=== PATIENT | female | born 2000 | race Caucasian/White ===

== ENCOUNTER 2024-12-04 22:21 | Emergency (ER) | payer BC, SELFPAY ==
[2024-12-04 22:30] VITALS: BP 136/102; PULSE 136; RESP 24; TEMP 36.5; O2SAT 99
--- NOTE | 2024-12-04 22:32 | ECG_ITS ---
Test Date: 2024-12-04 22:37:15 Measurements Intervals [place] Rate: 142 P: 59 SD: 123 QRS: 64 QRSD: 75 T: 38 QT: 328 QTc: 505 Interpretive Statements SINUS TACHYCARDIA NONSPECIFIC ST & T-WAVE ABNORMALITY ABNORMAL ECG No previous ECG available for comparison Electronically Signed On 12-05-2024 08:08:47 CDT by Reed Gill M.D.
[2024-12-04 23:08] LABS: Strep Group A RT-PCR NOT DETECTED (Negative)
[2024-12-04 23:20] LABS: Influenza A QL RT-PCR Negative (Negative); Influenza B QL RT-PCR Negative (Negative); RSV RNA, RT-PCR Positive (Negative); SARS-CoV-2 RNA PCR Negative (Negative)
[2024-12-05] VITALS (11 sets, daily range): BP systolic 115–137; BP diastolic 76–90; PULSE 95–105; RESP 15–22; O2SAT 98
--- NOTE | 2024-12-05 06:39 | ED_ITS ---
HPI - URI/Sore Throat General Chief Complaint: Upper Respiratory Infection Stated Complaint: Vomiting, fever, sore throat x 3 days-Cough Time Seen by Provider: 12/05/24 05:49 History of Present Illness HPI Narrative: 24-year-old otherwise healthy female presenting with 3 days of fever, sore throat, vomiting and diarrhea. She endorses a nonproductive cough. No sick contacts. Thought it may be seasonal allergies. She has been trying to orally hydrate at home but states that she feels nauseous. Endorses diarrhea with loose stools. No sick contacts, no children at home without any similar symptoms, recently moved here from [place]. Was otherwise in her normal state of health. Related Data Allergies Allergy/AdvReac Type Severity Reaction Status Date / Time amoxicillin Allergy Intermediate Hives Verified 12/04/24 22:23 Review of Systems Review of Systems: As reviewed above in HPI Exam Narrative: GENERAL: Morbidly obese but not any acute distress, overall well-appearing HEAD: [Normocephalic, atraumatic.] EYES: [PERRLA and EOMI.] ENT: Nares clear, no rhinorrhea or epistaxis. Mucous membranes moist. NECK: Supple. CHEST: [Clear to auscultation. No respiratory distress.] HEART: [Regular rate and rhythm]. No murmur heard. [Normal peripheral pulses.] ABDOMEN: [Soft, nondistended], [nontender], [No rigidity or guarding] EXTREMITIES: Normal range of motion. [No edema.] SKIN: Warm, dry, no rash. NEURO: [No focal deficits]. Alert and oriented [x3.] PSYCH: [Normal mood and affect.] Course Vital Signs Vital signs: Vital Signs Temperature 36.5 C 12/04/24 22:30 Pulse Rate 136 H 12/04/24 22:30 Respiratory Rate 24 H 12/04/24 22:30 Blood Pressure 136/102 H 12/04/24 22:30 Pulse Oximetry 99 12/04/24 22:30 Oxygen Delivery Room Air 12/04/24 22:30 Temperature 36.5 C 12/04/24 22:30 Pulse Rate 98 12/05/24 05:49 Respiratory Rate 24 H 12/04/24 22:30 Blood Pressure 124/86 12/05/24 05:49 Pulse Oximetry 98 12/05/24 05:49 Oxygen Delivery Room Air 12/04/24 22:30 MDM - URI/Sore Throat MDM Narrative Medical decision making narrative: 24-year-old female presenting with signs and symptoms of a viral respiratory infection versus viral syndrome. She endorses fever, vomiting, diarrhea and sore throat for 3 days. She is overall well-appearing. Was coughing in triage with a elevated heart rate but clinically does not appear dry or dehydrated and her vital signs improved without any interventions. She is afebrile here, no tachycardia or blood pressure concerns. Viral panel swab and strep swabs were obtained. EKG ordered and shows sinus tachycardia, no ST segment changes or ectopy. Viral panel swabs came back for RSV. Negative for COVID, flu, strep. Patient was given symptomatic control including loperamide, Zofran and Bentyl and will be discharged home with combination of the above medications for treatments at home and given strict return precautions as well as instructions on good oral hydration. Patient will follow-up with primary care provider or return with any emergent concerns. Medical Records Attestation: I reviewed the patient's medical records. Lab Data Attestation: I reviewed the patient's lab results. Labs: Lab Results 12/04/24 Range/Units 22:34 Influenza A (RT-PCR) Negative (Negative) Influenza B (RT-PCR) Negative (Negative) RSV (RT-PCR) Positive A (Negative) SARS-CoV-2 RNA (RT-PCR) Negative (Negative) Group A Strep (PCR) Not detected (Negative) Discharge Plan Discharge Clinical Impression: Respiratory syncytial virus (RSV), Upper respiratory infection Patient Disposition: Home Condition: Stable Instructions: Antibiotic Form, RSV (Respiratory Syncytial Virus) Infection (ED) Additional Instructions: Take the prescribed medications for control of nausea vomiting and diarrhea. Maintain good oral hydration with electrolyte replacement solution such as Pedialyte, Gatorade, Powerade, liquid IV. Follow-up with a primary care provider. Return with any emergent concerns. Patient Language: Wolof Prescriptions: New loperamide [Anti-Diarrheal (loperamide)] 2 mg capsule 2 mg PO Q6H PRN (Reason: loose stool) Qty: 14 0RF benzonatate 200 mg capsule 200 mg PO TID PRN (Reason: cough) Qty: 20 0RF dicyclomine 20 mg tablet 20 mg PO TID PRN (Reason: abdominal pain) Qty: 14 0RF ondansetron 4 mg tablet,disintegrating 4 mg PO Q8H PRN (Reason: nausea and vomiting) Qty: 10 0RF ondansetron 4 mg tablet,disintegrating 4 mg PO Q8H PRN (Reason: nausea and vomiting) Qty: 20 0RF Follow-up/Referrals: PHYSICIAN,[employer] [Primary Care Provider] - Sang Ortiz MD [Physician] - 1 Week (PCP) Time of Disposition: 06:24
[2024-12-05] MEDS: DICYCLOMINE HCL 10 MG CAPSULE 20 MG PO (06:43)
[2024-12-05] MEDS: LOPERAMIDE HCL 2 MG CAPSULE 4 MG PO (06:44)
[2024-12-05] MEDS: ONDANSETRON HCL ODT 4 MG TABLET PO (06:45)
== END 2024-12-05 06:57 | disposition home or self-care (01) ==
LOC: ANHED 12-05 06:32
PROVIDERS: Emergency Provider Student in an Organized Health Care Education/Training Program
DX: J06.9 Acute upper respiratory infection, unspecified (principal); B97.4 Respiratory syncytial virus as the cause of diseases classified elsewhere; Z20.822 Contact with and (suspected) exposure to COVID-19
CPT/HCPCS: 87637; 87651; 93005; 99283; A9270